=== PATIENT | female | born 1950 | race Caucasian/White ===

== ENCOUNTER 2020-03-10 14:10 | Outpatient (CLI) | payer MEDICARE, OTHER, SELFPAY ==
--- NOTE | 2020-03-10 14:19 | MM_ITS ---
WS: [id number] Bilateral screening digital mammogram, 03/10/2020 Clinical Data: SCREEN Comparison: 11/01/2018, 10/05/2017, 09/05/2016, 06/16/2015, 05/25/2010, 05/04/2009. Findings: The breast parenchymal pattern shows fibroglandular tissue No spiculated masses or clustered calcific ations are seen. There are no secondary signs of carcinoma. MM/[place] [id number] Impression: 1. Negative bilateral mammogram unchanged. 2. Recommend annual screening mammograms. BIRADS: 1-Negative FOLLOW UP: 1 Year Follow-up The CAD brick paving checker was used.
== END 2020-03-10 14:11 | disposition home or self-care (01) ==
LOC: RADSHAW 14:15
PROVIDERS: PCP Family Medicine; Visit Provider Family Medicine
DX: Z12.31 Encounter for screening mammogram for malignant neoplasm of breast (principal)
CPT/HCPCS: 77067

== ENCOUNTER 2021-01-26 14:31 | Outpatient (CLI) | payer MEDICARE, OTHER, SELFPAY ==
--- NOTE | 2021-01-26 14:39 | XR_ITS ---
WS: [id number] LUMBAR SPINE: 3 VIEWS TECHNIQUE: AP, lateral and L5-S1 spot. HISTORY: CHRONIC MIDLINE LOW BACK PAIN WITH BILATERAL SCIATICA COMPARISON: None available. Very mild RIGHT curvature lumbar spine. Disc spaces are narrowed with endplate osteophytes. No fractu res. Mild facet joint arthritis at L5-S1. Bones are diffusely osteopenic. SI joints are symmetric bilaterally. No soft tissue abnormalities. Moderate atherosclerosis aorta. XR/XR lumbar spine 2-3V* [id number] IMPRESSION: 1. Moderate spondylitic changes. 2. No acute compression fractures are evident. 3. Moderate atherosclerosis aorta.
== END 2021-01-26 14:32 | disposition home or self-care (01) ==
PROVIDERS: PCP Family Medicine; Visit Provider Family Medicine
DX: M54.5 Low back pain (principal); M54.32 Sciatica, left side; M54.31 Sciatica, right side; I70.0 Atherosclerosis of aorta
CPT/HCPCS: 72100

== ENCOUNTER → 2021-03-05 11:43 | Outpatient (BNVA) | payer MEDICARE, OTHER, SELFPAY | PROVIDERS: PCP Family Medicine; Visit Provider Podiatrist Foot & Ankle Surgery | DX: M79.672 Pain in left foot (principal) | CPT/HCPCS: 73630 ==

== ENCOUNTER 2021-03-05 12:36 | Outpatient (CLI) | payer MEDICARE, OTHER, SELFPAY | END 2021-03-05 12:37 | disposition home or self-care (01) | LOC: SPT 12:38 | PROVIDERS: PCP Family Medicine; Visit Provider Podiatrist Foot & Ankle Surgery | DX: Z46.89 Encounter for fitting and adjustment of other specified devices (principal); M76.829 Posterior tibial tendinitis, unspecified leg | CPT/HCPCS: 97760; L4361 ==

== ENCOUNTER 2021-03-10 12:43 | Outpatient (CLI) | payer MEDICARE, OTHER, SELFPAY ==
--- NOTE | 2021-03-10 13:00 | MR_ITS ---
WS: [id number] MRI LEFT ANKLE NONCONTRAST TECHNIQUE: Sagittal proton density, sagittal STIR, axial proton density, axial T1, axial T2 fat sat, coronal proton density, coronal proton density fat sat, coronal T2 fat sat. CLINICAL INFORMATION: Ankle pain COMPARISON: None. FINDINGS: Intrasubstance signal abnormality involving the distal Achilles proximal to the insertion consistent with tendinosis and mucoid degeneration. Normal Achilles insertion. Normal ankle mortise. Normal late ral malleolus. Normal medial malleolus. Deltoid ligament is intact. ATF appears intact. Achilles enth esophyte. Plantar calcaneal spurring. Normal plantar aponeurosis. Normal talus and calcaneus. Small amount of subchondral cystic change inv olving the medial talar dome. No evidence of avascular necrosis. Normal talocalcaneal articulation. N ormal cuboid. Normal talus. Visualized tarsal bones are normal. Chronic split tear peroneus brevis. Peroneal tendon sheath is normal. Peroneal longus and brevis othe rwise normal. Tenosynovitis along the tibialis posterior with tendinopathy or partial intrasubstance tear. Small an kle effusion with a few ganglion cysts. Tenosynovitis along the tibialis anterior. Extensor compartme nt tendons are otherwise normal. MR/MR ankle LT wo con* [id number] IMPRESSION: 1. Normal ankle mortise. No acute fractures. 2. Tendinosis and mucoid degeneration involving the distal Achilles which appe ars intact. 3. Tenosynovitis with tendinopathy or partial tear involving the tibialis post erior. 4. Tenosynovitis along the tibialis anterior. 5. Small ankle joint effusion with a few ganglion cysts at the anterolateral g utter. 6. ATF is intact. 7. Chronic split tear peroneus brevis.
== END 2021-03-10 12:44 | disposition home or self-care (01) ==
LOC: RADSHAW 12:47
PROVIDERS: PCP Family Medicine; Visit Provider Podiatrist Foot & Ankle Surgery
DX: M25.572 Pain in left ankle and joints of left foot (principal); M25.472 Effusion, left ankle; M67.472 Ganglion, left ankle and foot; M65.872 Other synovitis and tenosynovitis, left ankle and foot
CPT/HCPCS: 73721

== ENCOUNTER 2021-04-26 08:25 | Outpatient (CLI) | payer MEDICARE, OTHER, SELFPAY ==
--- NOTE | 2021-04-26 08:30 | XR_ITS ---
WS: [id number] KUB, AP view, 04/26/2021 Clinical Data: kidney stones Comparison: KUB, 01/11/2018. Findings: No abnormal intraabdominal masses or calcifications are seen. There is no dilatated small bowel or ev idence of obstruction. There is a large amount of fecal material throughout the colon. XR/XR KUB [id number] Impression: Negative KUB.
== END 2021-04-26 08:26 | disposition home or self-care (01) ==
PROVIDERS: PCP Family Medicine; Visit Provider Urology
DX: N20.0 Calculus of kidney (principal)
CPT/HCPCS: 74018; 81003; 87077; 87086; 87184

== ENCOUNTER 2021-04-28 16:13 | Outpatient (CLI) | payer MEDICARE, OTHER, SELFPAY | END 2021-04-28 16:14 | disposition home or self-care (01) | LOC: SPT 16:14 | PROVIDERS: PCP Family Medicine; Visit Provider Podiatrist Foot & Ankle Surgery | DX: Z46.89 Encounter for fitting and adjustment of other specified devices (principal); M76.829 Posterior tibial tendinitis, unspecified leg | CPT/HCPCS: 97760; L1902 ==

== ENCOUNTER 2021-05-20 15:50 | Outpatient (CLI) | payer MEDICARE, OTHER, SELFPAY | END 2021-05-20 15:51 | disposition home or self-care (01) | LOC: SPT 15:51 | PROVIDERS: PCP Family Medicine; Visit Provider Podiatrist Foot & Ankle Surgery | DX: Z46.89 Encounter for fitting and adjustment of other specified devices (principal); M76.829 Posterior tibial tendinitis, unspecified leg; S86.112D Strain of other muscle(s) and tendon(s) of posterior muscle group at lower leg level, left leg, subsequent encounter; X58.XXXD Exposure to other specified factors, subsequent encounter | CPT/HCPCS: 97760; L3030 ==

== ENCOUNTER → 2021-06-15 13:59 | Outpatient (BNVA) | payer MEDICARE, OTHER, SELFPAY | PROVIDERS: PCP Family Medicine; Visit Provider Urology | DX: N39.0 Urinary tract infection, site not specified (principal); N39.41 Urge incontinence; N20.0 Calculus of kidney | CPT/HCPCS: 81003 ==

== ENCOUNTER 2021-07-08 15:08 | Outpatient (CLI) | payer MEDICARE, OTHER, SELFPAY ==
--- NOTE | 2021-07-08 15:16 | MM_ITS ---
WS: [id number] SCREENING DIGITAL MAMMOGRAM WITH CAD HISTORY: SCREENING COMPARISON: 03/10/2020, 11/01/2018, 10/05/2017 and 09/05/2016 Bilateral CC and MLO views submitted. Computer aided detection analyzed. Breast composition: There are scattered areas of fibroglandular density. Focal asymmetry with adjacen t calcifications in the central LEFT breast at a middle depth needs further evaluation. Linear area c onfiguration extending over a length of 10 mm. There is an additional cluster of calcification in the superior LEFT breast which has been present on prior studies. Recommend additional spot compression views for better evaluation. MM/[place] [id number] IMPRESSION: BI-RADS: 0-Incomplete: Need additional imaging evaluation FOLLOW UP: Need Additional Imaging LEFT breast: Magnification views (CC and MLO). True ML. Ultrasound to follow if abnormality persists.
== END 2021-07-08 15:09 | disposition home or self-care (01) ==
LOC: RADSHAW 15:14
PROVIDERS: PCP Family Medicine; Visit Provider Family Medicine
DX: Z12.31 Encounter for screening mammogram for malignant neoplasm of breast (principal)
CPT/HCPCS: 77067

== ENCOUNTER 2021-09-03 12:59 | Outpatient (CLI) | payer MEDICARE, OTHER, SELFPAY ==
--- NOTE | 2021-09-03 13:32 | MM_ITS ---
WS: [id number] ADDITIONAL VIEWS LEFT MAMMOGRAM HISTORY: LEFT breast calcifications seen on recent screening mammogram. COMPARISON: 07/08/2021, 03/10/2020, 11/01/2018 Magnification views LEFT breast in CC, MLO projections and true ML submitted. On the magnification views there are only a couple calcifications which are not clustered in the ante rior breast. No residual soft tissue nodular mass associated with these calcifications. There are add itional benign calcifications which are stable. There is no suspicious grouping of calcifications. MM/[place] [id number] IMPRESSION: BI-RADS: 2-Benign FOLLOW UP: 1 Year Follow-up
== END 2021-09-03 13:00 | disposition home or self-care (01) ==
LOC: RADSHAW 13:02
PROVIDERS: PCP Family Medicine; Visit Provider Family Medicine
DX: R92.1 Mammographic calcification found on diagnostic imaging of breast (principal)
CPT/HCPCS: 77065

== ENCOUNTER → 2021-09-08 15:14 | Outpatient (BNVA) | payer MEDICARE, OTHER, SELFPAY | PROVIDERS: PCP Family Medicine; Visit Provider Nurse Practitioner Family | DX: N39.0 Urinary tract infection, site not specified (principal) | CPT/HCPCS: 81003 ==

== ENCOUNTER → 2022-10-03 18:20 | Outpatient (BNVA) | payer MEDICARE, OTHER, SELFPAY | PROVIDERS: PCP Family Medicine; Visit Provider Registered Nurse Neonatal Intensive Care | DX: M25.511 Pain in right shoulder (principal) | CPT/HCPCS: 73030 ==

== ENCOUNTER 2022-10-18 12:17 | Outpatient (CLI) | payer MEDICARE, OTHER, SELFPAY ==
--- NOTE | 2022-10-18 12:24 | XR_ITS ---
WS: [id number] Exam: XR cervical spine 3V* [id number] Date/Time of Exam: 10/18/2022 12:28 PM Reason For Exam: CERVICAL PAIN No acute fracture or dislocation. Mild spondylosis of C4-C5. Mild facet DJD at all levels. There is s traightening of the C-spine. Very slight degenerative retrolisthesis of C4 on C5 with about 2 mm post erior movement of C4. Normal paraspinal soft tissues. The odontoid is intact. XR/XR cervical spine 3V* [id number] IMPRESSION: 1. No fracture or malalignment. 2. Mild degenerative changes as detailed above.
== END 2022-10-18 12:18 | disposition home or self-care (01) ==
LOC: RAD 12:19
PROVIDERS: PCP Family Medicine; Visit Provider Registered Nurse
DX: M47.812 Spondylosis without myelopathy or radiculopathy, cervical region (principal)
CPT/HCPCS: 72040

== ENCOUNTER 2022-11-04 10:44 | Outpatient (CLI) | payer MEDICARE, OTHER, SELFPAY ==
--- NOTE | 2022-11-04 11:00 | MR_ITS ---
WS: [id number] MRI RIGHT SHOULDER HISTORY: PAIN IN JOINT OF R SHOULDER/DECREASED ROM OF R SHOULDER COMPARISON: RIGHT shoulder radiograph 10/03/2022 TECHNIQUE: Multiplanar sequences of the shoulder joint are submitted. Severe AC joint arthritis. Bone and soft tissue hypertrophy with fluid along the AC ligament. Moderat e subacromial and subdeltoid joint effusion. There is fluid distending the axillary pouch. Subacromia l impingement contacting the superior humeral head. No os acromion. Biceps tendon is not identified in the bicipital groove. Tendon is either dislocated or torn. Advanced degenerative changes involving the humeral head. Loss of cartilage with high riding humeral head. Narrowing of the glenohumeral joint. Severe narrowing of the coracohumeral interval. Torn retracted supraspinatus tendon. Tendon is retracted to the superior humeral head with fraying of the distal surfaces. Severe atrophy of the supraspinatus. Moderate atrophy of the infraspinatus and subscapularis tendons. Subscapularis tendon is torn and retracted proximal to the coracohumeral inter nanda. Infraspinatus tendon is not identified beyond the superior humeral head. Small caliber menisci. MR/MR shoulder RT wo con* [id number] IMPRESSION: 1. Severe degenerative changes at the RIGHT shoulder. 2. Torn retracted supraspinatus, infraspinatus and subscapularis tendons. 3. Severe AC joint arthritis with AC ligament sprain. 4. Severe narrowing of the coracohumeral ligament and subacromial encroachment . 5. Nonvisualization of the biceps tendon in the bicipital groove. Tendon is ei ther torn and retracted or dislocated.
== END 2022-11-04 10:45 | disposition home or self-care (01) ==
PROVIDERS: PCP Family Medicine; Visit Provider Registered Nurse
DX: M25.611 Stiffness of right shoulder, not elsewhere classified (principal); M19.011 Primary osteoarthritis, right shoulder; S43.51XA Sprain of right acromioclavicular joint, initial encounter; X58.XXXA Exposure to other specified factors, initial encounter
CPT/HCPCS: 73221

== ENCOUNTER 2023-03-13 10:59 | Outpatient (RCR) | payer MEDICARE, OTHER, SELFPAY | END 2023-03-24 23:59 | disposition home or self-care (01) | LOC: SPT 10:59 | PROVIDERS: PCP Family Medicine; Visit Provider Physician Assistant | DX: Z47.89 Encounter for other orthopedic aftercare (principal) | CPT/HCPCS: 97110; 97161 ==

== ENCOUNTER 2023-03-25 06:00 | Outpatient (RCR) | payer MEDICARE, OTHER, SELFPAY | END 2023-04-24 23:59 | disposition home or self-care (01) | LOC: SPT 06:00 | PROVIDERS: PCP Family Medicine; Visit Provider Physician Assistant | DX: Z47.89 Encounter for other orthopedic aftercare (principal) | CPT/HCPCS: 97110; 97140 ==

== ENCOUNTER 2023-04-25 06:00 | Outpatient (RCR) | payer MEDICARE, OTHER, SELFPAY | END 2023-05-25 23:59 | disposition home or self-care (01) | LOC: SPT 06:00 | PROVIDERS: PCP Family Medicine; Visit Provider Physician Assistant | DX: Z47.1 Aftercare following joint replacement surgery (principal); Z96.611 Presence of right artificial shoulder joint | CPT/HCPCS: 97110 ==

== ENCOUNTER 2024-01-24 11:19 | Outpatient (CLI) | payer MEDICARE, OTHER, SELFPAY ==
--- NOTE | 2024-01-24 11:29 | MM_ITS ---
WS: [id number] BILATERAL 3D TOMOSYNTHESIS DIGITAL SCREENING MAMMOGRAPHY WITH CAD CLINICAL INFORMATION: SCREENING HISTORY: Screening mammogram. No current complaints. COMPARISON: 2020 TECHNIQUE: Bilateral CC and MLO views. FINDINGS: Scattered fibroglandular densities bilaterally. No suspicious focal mass, asymmetry, calcifications, or architectural distortion. No evidence of malignancy. Vascular calcification. Incidental punctate a nd lucent centered calcifications. MM/[place] [id number] IMPRESSION: BI-RADS: 2-Benign FOLLOW UP: 1 Year Follow-up Recommend return to annual screening mammography.
== END 2024-01-24 11:20 | disposition home or self-care (01) ==
LOC: RAD 11:23
PROVIDERS: PCP Family Medicine; Visit Provider Family Medicine
DX: Z12.31 Encounter for screening mammogram for malignant neoplasm of breast (principal); R92.323 Mammographic fibroglandular density, bilateral breasts
CPT/HCPCS: 77063; 77067

== ENCOUNTER 2024-02-14 12:09 | Outpatient (CLI) | payer MEDICARE, OTHER, SELFPAY ==
--- NOTE | 2024-02-14 12:21 | XRR_ITS ---
PROCEDURE INFORMATION: Exam: XR Bilateral Hips Exam date and time: 02/14/2024 12:47 PM Age: 73 years old Clinical indication: Hip pain; Bilateral TECHNIQUE: Imaging protocol: Radiologic exam of the bilateral hips. Views: 2 views of hips with pelvis when performed. COMPARISON: CT kidney stone [id number] 12/05/2017 12:54 PM FINDINGS: Bones/joints: Lower lumbar degenerative changes. Enthesopathic changes both greater trochanters. No fracture. Soft tissues: Unremarkable. XR/XR hip BI 3-4V wo/[place] pel [id number] IMPRESSION: No acute findings.
== END 2024-02-14 12:10 | disposition home or self-care (01) ==
LOC: RAD 12:12
PROVIDERS: PCP Family Medicine; Visit Provider Family Medicine
DX: M47.896 Other spondylosis, lumbar region (principal); M77.9 Enthesopathy, unspecified
CPT/HCPCS: 73522

== ENCOUNTER 2024-03-12 13:58 | Outpatient (CLI) | payer MEDICARE, OTHER, SELFPAY ==
--- NOTE | 2024-03-12 14:10 | XRR_ITS ---
PROCEDURE INFORMATION: Exam: XR Right Knee Exam date and time: 03/12/2024 2:15 PM Age: 73 years old Clinical indication: Pain; Left; Prior surgery; Surgery date: 6+ months; Surgery type: Right meniscus 2017; Patient HX: Knee locked up while walking up steps. ; Additional info: Injury of R knee TECHNIQUE: Imaging protocol: Radiologic exam of the right knee. Views: 3 views. COMPARISON: CR XR knee RT 3V* [id number] 05/08/2018 4:46 PM FINDINGS: Bones/joints: Osseous structures are intact. Negative for fracture. Moderate tricompartmental DJD. Soft tissues: Normal. XR/XR knee RT 3V* [id number] IMPRESSION: No acute findings. Moderate tricompartmental DJD.
== END 2024-03-12 13:59 | disposition home or self-care (01) ==
PROVIDERS: PCP Family Medicine; Visit Provider Family Medicine
DX: S89.91XD Unspecified injury of right lower leg, subsequent encounter (principal); Z98.890 Other specified postprocedural states; M17.11 Unilateral primary osteoarthritis, right knee
CPT/HCPCS: 73562

== ENCOUNTER 2024-04-04 08:11 | Observation (INO) | payer MEDICARE, OTHER, MEDICAID, SELFPAY ==
[2024-04-04] VITALS (8 sets, daily range): BP systolic 104–152; BP diastolic 52–97; PULSE 59–89; RESP 14–20; TEMP 36.7–36.9; O2SAT 92–98; BMI 33.6
--- NOTE | 2024-04-04 08:26 | XRR_ITS ---
PROCEDURE INFORMATION: Exam: XR Chest Exam date and time: 04/04/2024 8:43 AM Age: 73 years old Clinical indication: Cough and dyspnea; Patient HX: Back pain, burping; Additional info: Dyspnea/cough TECHNIQUE: Imaging protocol: Radiologic exam of the chest. Views: 1 view. COMPARISON: MR shoulder RT wo con* [id number] 11/04/2022 11:37 AM FINDINGS: Lungs: Unremarkable. No consolidation. Pleural spaces: Unremarkable. No pleural effusion. No pneumothorax. Heart/Mediastinum: Unremarkable. No cardiomegaly. Bones/joints: The patient is post right shoulder arthroplasty. Degenerative changes are noted in the bones. XR/XR chest 1V portable [id number] IMPRESSION: No acute cardiopulmonary disease.
--- NOTE | 2024-04-04 08:27 | ED_ITS ---
HPI - Chest Pain 2 General: Chief Complaint: Chest Pain Stated Complaint: chest pain, back pain, burping Time Seen by Provider: 04/04/24 08:19 Source: patient Mode of arrival: ambulatory History of Present Illness: 73-year-old female presents to the emerg ency room with complaints of chest comfort that began last night after she was eating. She reports lower retrosternal epigastric discomfort with a lot of eructations woke her up earlier this morning. She had some relief with drinking milk. No history of coronary disease. no chest discomfort at this time I seen the patient.. No shortness of breath or diaphoresis at this time no chest pain at this time. Initial EKG shows T wave inversion in 2 3 as well as V3 through 6. MD complaint: chest pain Onset (ago): hour(s) Timing of current episode: episodic Onset: after eating Pain location: substernal Associated symptoms: Deny abdominal pain, dyspnea or fever(s) Review of Systems 2 Const: Denies: fever(s) or chills Card: Denies: chest pain Resp: Denies: dyspnea GI: Denies: abdominal pain : Denies: dysuria, urinary frequency or urinary urgency Musc: Denies: neck pain or back pain Skin/Breast: Denies: rash PFSH ED 2 PFSH: Medical History Recurrent UTI Urgency incontinence Left renal stone History of torn meniscus of right knee History of kidney stones Surgical History History of hysterectomy History of tonsillectomy and adenoidectomy Family History Father CAD (coronary artery disease) Cancer Grandfather CAD (coronary artery disease) Hypertension Grandmother CAD (coronary artery disease) Hypertension Mother Hypertension Stroke Social History Second hand smoke exposure: No Alcohol intake: never Substance/Drug Use: never Marital status: Current occupational status: retired Physical Exam 2 Const: COMMON NORMALS: no acute distress GENERAL APPEARANCE: cooperative and comfortable ORIENTATION/CONSCIOUSNESS: Yes awake, Yes oriented to person, Yes oriented to place and Yes oriented to time HENMT: COMMON NORMALS: normocephalic, atraumatic and hearing grossly normal bilaterally HEAD & SCALP: normocephalic and atraumatic Resp: COMMON NORMALS: normal respiratory effort, No retractions, No use of accessory muscles and clear to auscultation bilaterally AUSCULTATION: clear to auscultation bilaterally Cardio: COMMON NORMALS: regular rate, regular rhythm and No murmurs present (Cardio) RATE: regular rate RHYTHM: regular rhythm GI: COMMON NORMALS: Soft to palpation and No hepatosplenomegaly present A USCULTATION: Yes normoactive bowel sounds PALPATION: Yes Soft to palpation, No Tenderness to palpation present (GI), No Guarding due to palpation present (GI) and Yes No hepatosplenomegaly present Extremity: COMMON NORMALS: normal to inspection, capillary refill normal, no clubbing, cyanosis or edema, no calf tenderness and no pedal edema Neuro: SENSORIUM/ORIENTATION: Yes oriented to person, Yes oriented to place and Yes oriented to time Skin: COMMON NORMALS: no rashes or lesions noted GENERAL SKIN EXAM: no rashes or lesions noted Course 2 Vital Signs: Vital signs: Vital Signs Temperature 98.1 F 04/04/24 08:15 Pulse Rate 59 L 04/04/24 11:33 Respiratory Rate 18 04/04/24 11:33 Blood Pressure 110/76 04/04/24 09:43 Pulse Oximetry 95 04/04/24 11:33 Oxygen Delivery Me thod Nasal Cannula 04/04/24 11:33 Oxygen Flow Rate 2 04/04/24 11:33 MDM - Chest Pain Medical Decision Making Initial EKG showed T wave inversion in 3 and aVF as well as the lateral leads V3 through 6. She had told the nurse she had chest pain for return but when I had seen her she said she only had the GI symptoms. She reported that they got better a little bit after she drank the milk overnight. Her next EKG showed similar findings. She had some evidence of LVH. Subsequent EKGs at 1011 and 1111 were similar. Troponins both of 1 hour and 2-hour came back in the same timeframe and went from 300-476. Reevaluated patient at that point she is stating she still has GI symptoms stomach upset nausea but denies any chest pain at this time. Reviewed EKGs with Dr. Horn who is on-call and also asked him to see the patient. He concurred that while she does not meet criteria for STEMI her findings are consistent for an RCA lesion and with her ongoing anginal equivalents he is planning to take her directly to the [facility]. She was given Plavix aspirin and heparin. Discussed with Dr. Lomax as well. Patient will go directly from [facility] and be admitted. Medical Records I reviewed the patient's medical records. Lab Data I reviewed the patient's lab results. 04/04/24 08:32 04/04/24 08:32 Radiology Impressions Chest X-Ray 04/04/24 08:26 IMPRESSION: No acute cardiopulmonary disease. Laboratory Results WBC 10.50 10^3/uL (3.29-11.43) 04/04/24 08:32 RBC 4.70 10^6/uL (3.85-5.65) 04/04/24 08:32 Hgb 14.90 g/dL (11.27-16.99) 04/04/24 08:32 Hct 44.5 % (36-47) 04/04/24 08:32 MCV 94.7 fl (85-98) 04/04/24 08:32 MCH 31.7 pg (27-33) 04/04/24 08:32 MCHC 33.5 g/dL (30-55) 04/04/24 08:32 RDW 12.6 % (12.1-15.1) 04/04/24 08:32 Plt Count 315 10^3/cmm (157-399) 04/04/24 08:32 MPV 11.0 fL (7.4-10.4) H 04/04/24 08:32 Neut % (Auto) 81.6 % 04/04/24 08:32 Lymph % (Auto) 14.2 % 04/04/24 08:32 [place] % (Auto) 2.9 % 04/04/24 08:32 Eos % (Auto) 0.6 % 04/04/24 08:32 Baso % (Auto) 0.5 % 04/04/24 08:32 Neut # (Auto) 8.58 10^3/uL (1.8-7.7) H 04/04/24 08:32 Lymph # (Auto) 1.5 10^3/uL (0.8-4.8) 04/04/24 08:32 [place] # (Auto) 0.3 10^3/uL (0.2-0.9) 04/04/24 08:32 Eos # (Auto) 0.1 10^3/uL (0.0-0.8) 04/04/24 08:32 Baso # (Auto) 0.1 10^3/uL (0.0-0.1) 04/04/24 08:32 Nucleated RBC % (auto) 0 % 04/04/24 08:32 Nucleated RBCs # 0.0 /100WBC 04/04/24 08:32 Sodium 132 mmol/L (136-145) L 04/04/24 08:32 Potassium 4.7 mmol/L (3.5-5.1) 04/04/24 08:32 Chloride 98 mmol/L (98-107) 04/04/24 08:32 Carbon Dioxide 21 mmol/L (22-29) L 04/04/24 08:32 Anion Gap 17.7 (5-19) 04/04/24 08:32 BUN 31 mg/dL (8-23) H 04/04/24 08:32 Creatinine 1.0 mg/dL (0.5-0.9) H 04/04/24 08:32 GFR Calculation Not Reportable 04/04/24 08:32 Glucose 310 mg/dL (65-115) H 04/04/24 08:32 Calculated Osmolality 292 mOsm/kg (285-295) 04/04/24 08:32 Calcium 9.6 mg/dL (8.5-10.5) 04/04/24 08:32 Total Bilirubin 0.4 mg/dL (0.15-1.2) 04/04/24 08:32 AST 87 U/L (0-32) H 04/04/24 08:32 ALT 51 U/L (0-33) H 04/04/24 08:32 Alkaline Phosphatase 99 U/L (35-105) 04/04/24 08:32 Troponin T Baseline 305 ng/L (0-10) H* 04/04/24 09:32 Troponin T 120 Minute 476.8 ng/L (0-10) H 04/04/24 10:11 Delta Troponin T 171.8 ABS# (0-10) H* 04/04/24 10:11 Total Protein 7.6 g/dL (6.6-8.7) 04/04/24 08:32 Albumin 3.8 g/dL (3.5-5.2) 04/04/24 08:32 Globulin 3.8 g/dL (1.3-4.6) 04/04/24 08:32 All radiology interpretation(s) finalized by discharge Discharge Plan Discharge Condition: Stable Prescriptions: No Action (DME) PTT Supinator to the left See Rx Instructions .Route .MEDSUPPLY Qty: 1 0RF Rx Instructions: As directed bupropion HCl 150 mg tablet extended release 24 hr 150 mg PO BID omeprazole 20 mg tablet,delayed release (DR/EC) 20 mg PO DAILY allopurinol 300 mg tablet 300 mg PO DAILY Amitiza 24 mcg capsule 24 mcg PO DAILY valsartan 160 mg tablet 160 mg PO DAILY ropinirole 1 mg tablet 1 mg PO DAILY alprazolam 0.25 mg tablet 0.25 mg PO BID PRN (Reason: Anxiety) metoprolol tartrate 50 mg tablet 50 mg PO DAILY biotin 2,500 mcg capsule 5,000 mcg PO DAILY multivitamin [Multiple Vitamins] Tablet 1 tab PO DAILY cefuroxime axetil 500 mg tablet 500 mg PO BID Qty: 60 2RF levothyroxine 50 mcg tablet 50 mcg PO QAM hydrocodone-acetaminophen 7.5-325 mg tablet 1 tab PO Q6H PRN (Reason: Pain) montelukast 10 mg tablet 10 mg PO BEDTIME Ozempic 0.25 mg or 0.5 mg (2 mg/3 mL) pen injector 0.25 mg SUBCUT Q7D Referrals: Jocelyn Lopez DO [Primary Care Provider] - Coding Level of Care Code ED [employer] Worker for [facility]
[2024-04-04 08:44] LABS: Basophils # 0.1 10^3/uL (0.0-0.1); Basophils % 0.5 %; Eosinophils # 0.1 10^3/uL (0.0-0.8); Eosinophils % 0.6 %; Hematocrit 44.5 % (36-47); Lymphocytes # 1.5 10^3/uL (0.8-4.8); Lymphocytes % 14.2 %; Mean Corpuscular HGB Conc 33.5 g/dL (30-55); Mean Corpuscular Hemoglobin 31.7 pg (27-33); Mean Corpuscular Volume 94.7 fl (85-98); Monocytes # 0.3 10^3/uL (0.2-0.9); Monocytes % 2.9 %; Neutrophils # 8.58 10^3/uL (1.8-7.7); Neutrophils % 81.6 %; Nucleated Red Blood Cells % 0 %; Platelet Count 315 10^3/cmm (157-399); Red Cell Distribution Width 12.6 % (12.1-15.1)
[2024-04-04] MEDS: lidocaine 2% viscous 15 ML, aluminum-mag hydrox-simethicon 30 ML, sucralfate oral liq 1 GM PO (08:53)
[2024-04-04 08:54] LABS: Alanine Aminotransferase 51 U/L (0-33); Albumin Level 3.8 g/dL (3.5-5.2); Alkaline Phosphatase 99 U/L (35-105); Anion Gap 17.7 (5-19); Aspartate Amino Transferase 87 U/L (0-32); Blood Urea Nitrogen 31 mg/dL (8-23); Calcium 9.6 mg/dL (8.5-10.5); Carbon Dioxide 21 mmol/L (22-29); Chloride 98 mmol/L (98-107); Globulin 3.8 g/dL (1.3-4.6); Glucose 310 mg/dL (65-115); Osmolality Calculated 292 mOsm/kg (285-295); Potassium 4.7 mmol/L (3.5-5.1); Sodium 132 mmol/L (136-145); Total Bilirubin 0.4 mg/dL (0.15-1.2); Total Protein 7.6 g/dL (6.6-8.7)
[2024-04-04 08:55] LABS: Creatinine Clr Calc Pharmacy 54.0879
--- NOTE | 2024-04-04 09:44 | PC.NURSE ---
PATIENT STATES PAIN BETTER, BUT BURPING HAS RESUMED.
--- NOTE | 2024-04-04 09:59 | ECG_ITS ---
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 Measurements Intervals [place] Rate: 88 P: 55 FL: 148 QRS: -22 QRSD: 89 T: 16 QT: 346 QTc: 420 Interpretive Statements SINUS RHYTHM WITH SINUS ARRHYTHMIA BORDERLINE LEFT AXIS DEVIATION [QRS AXIS < -20] ST DEVIATION AND MODERATE T-WAVE ABNORMALITY, CONSIDER ANTEROLATERAL ISCHEMIA [-0.1+ mV T-WAVE IN V3-V6] No previous ECG available for comparison Electronically Signed On 04-04-2024 23:27:28 CDT by Sudhakar Craven M.D. [email or web address] [employer] [facility].[employer]/store/[id number] f
[2024-04-04 10:42] LABS: Troponin(5th) Baseline 305 ng/L (0-10)
[2024-04-04 10:43] LABS: Troponin 5 2HR 476.8 ng/L (0-10); Troponin 5 2HR Delta 171.8 ABS# (0-10)
[2024-04-04] MEDS: aspirin 81 mg Chew Tablet 324 MG PO (11:26)
[2024-04-04] MEDS: sodium chloride 0.9% 1,000 ML 999 ML IV (11:26)
[2024-04-04] MEDS: ondansetron 2 mg/ML SDV 2 mL 4 MG IVP (11:26)
[2024-04-04] MEDS: clopidogrel 300 mg Tablet PO (11:27)
--- NOTE | 2024-04-04 11:45 | P.HP_ITS ---
Providers/Chief Complaint 2 Admitting Physician: Nain Horn MD/ Cardiology Primary Care Provider: Jocelyn Lopez DO Chief Complaint: chest pain, back pain, burping History of Present Illness Stephanie Hanson is a 73 year old female with past medical history of diabetes, hypertension who presented to hospital with chest pain, back pain and indigestion. She says chest pain started last night. It comes and goes but mostly has stayed. Still having significant indigestion and nausea. EKG shows dynamic ST changes in inferior leads not meeting STEMI criteria. Initial troponin was 305 that trended up to 476 at 2 hours. Her diabetes is poorly controlled and per patient last HbA1c was 11. Review of Systems 2 Const: Denies: fever(s) or chills Card: Reports: chest pain Resp: Denies: dyspnea GI: Reports: nausea; Denies: abdominal pain : Denies: dysuria, urinary frequency or urinary urgency Musc: Denies: neck pain or back pain Skin/Breast: Denies: rash Medications/Allergies Home Medications Medication Instructions Recorded Confirmed Last Taken Type allopurinol 300 mg tablet 300 mg PO DAILY 08/27/20 04/04/24 04/04/24 History alprazolam 0.25 mg tablet 0.25 mg PO BID PRN Anxiety 08/27/20 04/04/24 Unknown History biotin 2,500 mcg capsule 5,000 mcg PO DAILY 08/27/20 04/04/24 04/03/24 History bupropion HCl 150 mg 24 hr tablet, 150 mg PO BID 08/27/20 04/04/24 04/04/24 History extended release lubiprostone 24 mcg capsule 24 mcg PO DAILY 08/27/20 04/04/24 04/04/24 History (Amitiza) metoprolol tartrate 50 mg tablet 50 mg PO DAILY 08/27/20 04/04/24 04/04/24 History multivitamin (Multiple Vitamins 1 tab PO DAILY 08/27/20 04/04/24 04/03/24 History tablet) omeprazole 20 mg tablet,delayed 20 mg PO DAILY 08/27/20 04/04/24 04/04/24 History release ropinirole 1 mg tablet 1 mg PO DAILY 08/27/20 04/04/24 04/04/24 History valsartan 160 mg tablet 160 mg PO DAILY 08/27/20 04/04/24 04/04/24 History PTT Supinator to the left #1 ea 04/28/21 04/04/24 Unknown Rx cefuroxime axetil 500 mg tablet 500 mg PO BID #60 tabs 08/25/22 04/04/24 04/04/24 Rx hydrocodone 7.5 mg-acetaminophen 1 tab PO Q6H PRN Pain 04/04/24 04/04/24 Unknown History 325 mg tablet levothyroxine 50 mcg tablet 50 mcg PO QAM 04/04/24 04/04/24 04/04/24 History montelukast 10 mg tablet 10 mg PO BEDTIME 04/04/24 04/04/24 Unknown History semaglutide 0.25 mg or 0.5 mg (2 0.25 mg SUBCUT Q7D 04/04/24 04/04/24 Unknown History mg/3 mL) subcutaneous pen injector (Ozempic) Allergies Allergy/AdvReac Type Severity Reaction Status Date / Time Penicillins Allergy Unknown Verified 10/03/22 17:48 Xumzdqt-KTT-HdT Reductase Allergy Unknown Verified 10/03/22 17:48 Inhibitor [Wkphkwe-Bkc-Kyf Reductase Inhibitor] tramadol Allergy rash Verified 10/03/22 17:48 PFSH Acute 2 PFSH: Medical History Recurrent UTI Urgency incontinence Left renal stone History of torn meniscus of right knee History of kidney stones Surgical History History of hysterectomy History of tonsillectomy and adenoidectomy Family History Father CAD (coronary artery disease) Cancer Grandfather CAD (coronary artery disease) Hypertension Grandmother CAD (coronary artery disease) Hypertension Mother Hypertension Stroke Social History Second hand smoke exposure: No Alcohol intake: never Substance/Drug Use: never Marital status: Current occupational status: retired Vitals/I&O/Wt Last Vital Signs Temp 98.1 F 04/04/24 08:15 Pulse 59 L 07/11/24 11:33 Resp 18 04/04/24 11:33 BP 110/76 04/04/24 09:43 Pulse Ox 95 04/04/24 11:33 O2 Del Method Nasal Cannula 04/04/24 11:33 O2 Flow Rate 2 04/04/24 11:33 Weight last 48 hrs Weight 196 lb Physical Exam 2 Narrative: GENERAL: Patient is alert, awake and oriented x3. [] NECK: No jugular vein distension. [] HEENT: No cyanosis. No icterus. No pallor. [] HEART: Regular S1 and S2. No murmur, rub or gallop. [] LUNGS: Clear to auscultate bilaterally. [] CENTRAL NERVOUS SYSTEM: Grossly nonfocal. [] EXTREMITIES: Lower extremities with 1+ edema bilaterally. Data 04/04/24 08:32 04/04/24 08:32 A&P Assessment and plan (1) NSTEMI (non-ST elevated myocardial infarction): (2) Hypertension: (3) Diabetes: Plan Patient has presented with high risk NSTEMI with uptrending troponins, ongoing symptoms and dynamic EKG changes. We will proceed with urgent coronary angiogram with possible PCI. Risks and benefits of the procedure were discussed in detail. Patient understands these and wants to proceed. Has been given aspirin, Plavix and heparin bolus We will obtain echocardiogram. Will consult medicine team for management of medical issues Attestations 2 Medical Necessity Statement*: Care not expected to cross 2 midnights. Patient has presented with non-ST elevation VT with ongoing symptoms. Going for urgent coronary angiogram with possible PCI. Coding Level of Care Code Acute Code for [facility] Diagnoses NSTEMI (non-ST elevated myocardial infarction) I21.4 Hypertension I10 Diabetes E11.9
[2024-04-04] MEDS: heparin 5,000 unit/mL INJ 1 mL IV (11:47)
--- NOTE | 2024-04-04 11:47 | XACV_ITS ---
Exam Room: [facility] Ht: 163 cm Wt: 89 kg BSA: 2.04 m2 Gender: Female : 1950 Any Known Allergies: Other Exam Priority: Routine Procedure(s): Procedure Description: Diagnostic procedure Procedure Description: PCI procedure Procedure Description: Drug Eluting Coronary Stent Procedure Description: PTCA Procedure Description: Miscellaneous Procedure Description: ACT Procedure Description: Coronary Angiography Diagnostic Cath Status: Urgent Diagnostic Findings * INDICATION: 73 year old female with past medical history of diabetes, hypertension who presented to hospital with chest pain, back pain and indigestion. She says chest pain started last night. It comes and goes but mostly has stayed. Still having significant indigestion and nausea. EKG shows dynamic ST changes in inferior leads not meeting STEMI criteria. Initial troponin was 305 that trended up to 476 at 2 hours. Her diabetes is poorly controlled and per patient last HbA1c was 11. . * Mid Right Coronary Artery: total thrombotic occlusion, MICHA:0 flow. Left to right collaterals are seen. * Left Main has no significant disease. * Circumflex has moderate diffuse luminal irregularities. OM1 has moderate 50 to 60% stenosis.. * Mid Left Anterior Descending: moderate 50% stenosis, MICHA: 3 flow. * Coronary angiography shows right dominance. PCI Status: Urgent PCI Indication: NSTE - ACS Interventional Findings * Procedure details: We engaged RCA with JR4 guide catheter. IV heparin was administered to maintain anticoagulation. 0.014 run-through guidewire was used to cross the total thrombotic occlusion of mid RCA was placed in distal vessel. We predilated the stenosis with 2.5 x 12 mm semicompliant balloon. This was followed by placement of 3.5 x 30 mm resolute [place] drug-eluting stent. PLV branch had total occlusion secondary to distal embolization. We dilated it with 2.0 x 12 mm and 2.5 x 12 mm semicompliant balloons. Flow was established however there was a stenosis. Given small size of the vessel very decided to treat it medically. At this time final angiogram was performed that showed excellent stent expansion,. Guide wire and guide catheter were removed. Patient left the pathology laboratory technologist in a stable condition. . * Right Posterior AV: 100% stenosis treated with a AB MINI TREK 2.00X12 RX BALLOON, and AB TREK 2.50X12 RX BALLOON. 90% residual stenosis. * Mid Right Coronary Artery: 100% stenosis treated with a AB TREK 2.50X12 RX BALLOON, and MDT R VAUGHN 3.5X30 LAKESHA. 0% residual stenosis, MICHA: 3 flow. Conclusions 1. Total thrombotic occlusion of mid RCA stenosis s/p successful revascularization with 1 stent. 2. Moderate mid LAD and OM 1 stenosis. If has symptoms as outpatient, can consider outpatient stress test. 3. Mid Right Coronary Artery was treated with a Balloon, and Drug Eluting Stent. 4. Right Posterior AV was treated with a Balloon, and Balloon. Recommendations * Dual antiplatelet therapy with aspirin and plavix. * Outpatient cardiology follow up in 2 weeks. * High intensity statin therapy. Interventional RX Recommendation: PCI w/o planned CABG Diagnostic RX Recommendation: PCI w/o planned CABG Anticoagulation: Heparin Pressures Phase:Rest AO : 99 / 71 ( 85 ) @ 1:26:00 PM 78 / 54 ( 66 ) @ 1:35:00 PM 131 / 73 ( 93 ) @ 1:42:00 PM 124 / 65 ( 91 ) @ 1:47:00 PM Clinical Evaluation EBL: 5mL-10mL Procedural Details Procedure Consent Obtained. Pre-Procedure Time Out. Identified patient by full name and date of as verbalized by the patient/guarantor. Does the consent match the physician's order: Yes. Accurate & Complete Informed Consent: Yes. Inpatient/Outpatient History & Physical on Chart: Yes. If H&P is completed, is and addenduem needed: No; If yes, is the addendum complete: N/A. Relevant Radiology Images available: Yes. Visualize and Verify Site with Patient/Guarantor: N/A. Pre-op teaching completed and patient verbalized understanding. The risks, benefits, and alternatives of sedation and/or procedure were discussed by physician. The patient agrees to continue. Procedure started. Current Diagnosis : NSTEMI. [facility] Clinical Fraility Score: 3: Managing Well. Client Service Associate Indications: ACS > 24 hours. Chest Pain Symptom Assessment: Atypical Angina. Correct patient, site and procedure confirmed by cath team. Current diagnosis: NSTEMI. PERRLA. 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 Lungs clear x 5 lobes. IV Site on Arrival: 18 gauge in the left anticubital. IV Fluids: 0.9% NaCl at KVO. 0 mL infused prior to pathology laboratory technologist. Oxygen started at 2liters/min via nasal canula. right groin was prepped with chloroprep then draped in the usual sterile fashion. right radial was prepped with chloroprep then draped in the usual sterile fashion. Physician arrived. Baseline sample Acquired. HR: 70 BPM. Physician scrubbed in. Immediate Pre-Procedure Time Out. Correct Patient: Yes; Correct Procedure: Yes; Correct Site: Yes; Correct Patient Position: Yes; Correct Supplies: Yes; Dried Flammable Prep: Yes; Blood Products Available: N/A;. Lidocaine 1% infiltrated to the right radial. Arterial access obtained. A 5 central african TIG catheter in over wire. Contrast hand injected through the catheter. Glidewire inserted through the catheter. Wire out. Contrast hand injected through the catheter. Exchange wire inserted. Catheter removed over the exchange wire. A TR Band was successful obtaining hemostatsis at the Right Radial artery insertion site. Lidocaine 1% infiltrated to the right groin. Ultrasound being used to obtain access. Arterial access obtained with micropuncture set. A 5 central african JL4 catheter in over wire. Multiple views taken of left coronary artery. Catheter removed over the standard wire. 6 central african JR 4 guide catheter was inserted over the wire. Runthrough guidewire was advanced through the guide catheter to lesion in the mid RCA. Inflation number : 1 A AB TREK 2.50X12 RX BALLOON was prepped and advanced across the Mid RCA , then inflated to 12 MARY ANN for 0:12 seconds. Inflation number: 2 The AB TREK 2.50X12 RX BALLOON was reinflated across the Mid RCA, to 14 MARY ANN for 0:09 seconds. Balloon out. Results checked. Inflation Number : 3 A MDT R VAUGHN 3.5X30 LAKESHA -Lot Number# _[id number] EXP: 12/25/2023 was prepped and advanced across the Mid RCA. The stent was deployed at 12 MARY ANN for 0:15 seconds. Stent balloon out over wire. Results checked. 2.5x12mm balloon inserted and advanced to the distal RCA. Balloon out. Inflation number : 1 A AB MINI TREK 2.00X12 RX BALLOON was prepped and advanced across the R PAV , then inflated to 8 MARY ANN for 0:07 seconds. Inflation number: 2 The AB MINI TREK 2.00X12 RX BALLOON was reinflated across the R PAV, to 12 MARY ANN for 0:09 seconds. Inflation number: 3 The AB MINI TREK 2.00X12 RX BALLOON was reinflated across the R PAV, to 4 MARY ANN for 0:06 seconds. Balloon out. Inflation number: 4 The AB TREK 2.50X12 RX BALLOON was reinflated across the R PAV, to 8 MARY ANN for 0:06 seconds. Inflation number: 5 The AB TREK 2.50X12 RX BALLOON was reinflated across the R PAV, to 6 MARY ANN for 0:13 seconds. Balloon out. Results checked. Wire out. ACT drawn. Results out of range high seconds. Therapeutic limits - pre-heparin administration 90-150 seconds and monitoring heparin during a vascular procedure >250 seconds. Results checked. Guide catheter out. A Right femoral angiogram was performed to determine safe placement of closure device. ACT drawn. Results 226 seconds. Therapeutic limits - pre-heparin administration 90-150 seconds and monitoring heparin during a vascular procedure >250 seconds. A Suture was successful obtaining hemostatsis at the Right Femoral artery insertion site. Sheath(s) sutured into position with 2-0 silk and sterile 4x4's and Op-site applied over the site. No oozing or signs and symptoms of hematoma noted. Arterial sheath flushed and connected to tranducer and pressure bag with heparinized saline. Post Procedure: Pulses reassessed and unchanged. PERRLA. 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 No VTE prophylaxis required. Medication's Wasted: Lidocaine 1% = 10 mL. Medication's Wasted: Nitro = 49.8 mcg. Medication's Wasted: Other = Fentanyl 50mcg Versed 1 mg. Total IV fluids: 65 mL. Vital chart was stopped. Post-op diagnosis: Stent to RCA. Complications: None. Estimated blood loss: 5mL-10mL. Responsiveness - Normal response to verbal stimuli; alert and oriented, PERRLA. Airway - Unaffected, no intervention required; spontaneous ventilation. Circulation: W/N/L, pulses unchanged. Nausea/Vomiting: No. Procedure completed. Medication's Wasted: Heparin = 4000 units. Patient transferred by bed to 1st floor. Access Site Site: Right Radial artery Sheath Size: 6 Fr Hemostasis Method: TR Band Hemostasis Success: Successful Site: Right Femoral artery Sheath Size: 6 Fr Hemostasis Method: Suture Hemostasis Success: Successful Procedure Medications Start: 12:04 PM Stop: 12:04 PM Medication: Versed Amount: 1 mg Route: I.V. Start: 12:04 PM Stop: 12:04 PM Medication: Fentanyl Amount: 50 mcg Route: I.V. Start: 12:09 PM Stop: 12:09 PM Medication: Nitrogylcerin Amount: 200 mcg Route: I.A. Start: 12:31 PM Stop: 12:31 PM Medication: Heparin Amount: 4000 units Route: I.V. Start: 12:38 PM Stop: 12:38 PM Medication: Heparin Amount: 1000 units Route: I.V. Start: 12:41 PM Stop: 12:41 PM Medication: Aggrastat 12.5 mg/250 mL Amount: 45 ml Route: I.V. bolus Start: 12:41 PM Stop: 12:41 PM Medication: Aggrastat 12.5 mg/250 mL Amount: 16.2 ml/hr Route: I.V. drip Start: 12:54 PM Stop: 12:54 PM Medication: Plavix Amount: 300 mg Route: P.O. Start: 12:59 PM Stop: 12:59 PM Medication: Heparin Amount: 1000 units Route: I.V. I, the attending physician, have reviewed and verified all procedure medications. Yes, all medications given per verbal order History/Risk Factors Hypertension: Yes Dyslipidemia: No Peripheral Arterial Disease (PAD): No Myocardial Infarction (RI): No Obesity: No Renal Disease: No Tobacco Use: Never Prior Interventions PCI: No CABG: No Valve Surgery: No Report Signatures Finalized by Nain Horn MD on 04/18/2024 06:07 PM
--- NOTE | 2024-04-04 11:59 | ECG_ITS ---
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 Measurements Intervals [place] Rate: 56 P: 47 NH: 144 QRS: -29 QRSD: 96 T: 13 QT: 462 QTc: 446 Interpretive Statements SINUS BRADYCARDIA BORDERLINE LEFT AXIS DEVIATION [QRS AXIS < -20] Nonspecific ST-T changes in the anterolateral and inferior leads LOW QRS VOLTAGE IN PRECORDIAL LEADS [QRS DEFLECTION < 1.0 mV IN CHEST LEADS] PATTERN CONSISTENT WITH PULMONARY DISEASE LEFT VENTRICULAR HYPERTROPHY AND ST-T CHANGE [VOLTAGE CRITERIA PLUS ST/T ABNORMALITY] No previous ECG available for comparison Electronically Signed On 04-04-2024 23:29:44 CDT by Sudhakar Craven M.D. [id number]
--- NOTE | 2024-04-04 12:06 | P.CONIM_ITS ---
Providers/Reason For Consult 2 Consulting Physician/Specialty*: Luis Toth MD Reason for Consult*: Medical management. Requesting Physician: Dr. Horn Primary Care Provider: Jocelyn Lopez DO History of Present Illness History of Present Illness Stephanie Hanson is a 73 year old female who presented to the hospital with complaints of chest discomfort. She also had a significant amount of reflux symptoms starting last night. Upon evaluation in the emergency department dynamic changes an EKG was noted, as well as elevated troponin. She was taken immediately to angiogram lab for evaluation and found to have an RCA lesion which was stented. Plavix, heparin, aspirin had all been initiated. Patient reports she has had diabetes for quite some time but hemoglobin A1c has shown good control. She has not been started on any medication for it. Although Ozempic was prescribed in the past she never started this medicine. Medications/Allergies Home Medications Medication Instructions Recorded Confirmed Last Taken Type allopurinol 300 mg tablet 300 mg PO DAILY 08/27/20 04/04/24 04/04/24 History alprazolam 0.25 mg tablet 0.25 mg PO BID PRN Anxiety 08/27/20 04/04/24 Unknown History biotin 2,500 mcg capsule 5,000 mcg PO DAILY 08/27/20 04/04/24 04/03/24 History bupropion HCl 150 mg 24 hr tablet, 150 mg PO BID 08/27/20 04/04/24 04/04/24 History extended release lubiprostone 24 mcg capsule 24 mcg PO DAILY 08/27/20 04/04/24 04/04/24 History (Amitiza) metoprolol tartrate 50 mg tablet 50 mg PO DAILY 08/27/20 04/04/24 04/04/24 History multivitamin (Multiple Vitamins 1 tab PO DAILY 08/27/20 04/04/24 04/03/24 History tablet) omeprazole 20 mg tablet,delayed 20 mg PO DAILY 08/27/20 04/04/24 04/04/24 History release ropinirole 1 mg tablet 1 mg PO DAILY 08/27/20 04/04/24 04/04/24 History valsartan 160 mg tablet 160 mg PO DAILY 08/27/20 04/04/24 04/04/24 History PTT Supinator to the left #1 ea 04/28/21 04/04/24 Unknown Rx cefuroxime axetil 500 mg tablet 500 mg PO BID #60 tabs 08/25/22 04/04/24 04/04/24 Rx hydrocodone 7.5 mg-acetaminophen 1 tab PO Q6H PRN Pain 04/04/24 04/04/24 Unknown History 325 mg tablet levothyroxine 50 mcg tablet 50 mcg PO QAM 04/04/24 04/04/24 04/04/24 History montelukast 10 mg tablet 10 mg PO BEDTIME 04/04/24 04/04/24 Unknown History semaglutide 0.25 mg or 0.5 mg (2 0.25 mg SUBCUT Q7D 04/04/24 04/04/24 Unknown History mg/3 mL) subcutaneous pen injector (Ozempic) Allergies Allergy/AdvReac Type Severity Reaction Status Date / Time Penicillins Allergy Unknown Verified 10/03/22 17:48 Zzecmtp-GKN-UqO Reductase Allergy Unknown Verified 10/03/22 17:48 Inhibitor [Efgdqdj-Fjs-Pkq Reductase Inhibitor] tramadol Allergy rash Verified 10/03/22 17:48 Current Medications Generic Name Dose Route Start Last Admin Trade Name Freq PRN Reason Stop Dose Admin Heparin Sodium (Porcine) 0 unit 04/04/24 11:12 04/04/24 11:47 Heparin 5,000 Unit/Ml Inj 1 Ml IV 4,000 unit PRN PRN Administration Heparin weight-base protocol Protocol Sodium Chloride 1,000 mls @ 999 mls/hr 04/04/24 11:18 04/04/24 11:26 Sodium Chloride 0.9% IV 04/04/24 12:18 999 mls/hr .Q1H1M ONE Administration PFSH Acute 2 PFSH: Medical History (Updated 04/04/24 @ 14:51 by Luis Toth MD) GERD (gastroesophageal reflux disease) Gout Depression with anxiety Hypothyroidism Chronic kidney disease Recurrent UTI Urgency incontinence Left renal stone History of torn meniscus of right knee History of kidney stones Surgical History History of hysterectomy History of tonsillectomy and adenoidectomy Family History Father CAD (coronary artery disease) Cancer Grandfather CAD (coronary artery disease) Hypertension Grandmother CAD (coronary artery disease) Hypertension Mother Hypertension Stroke Social History Second hand smoke exposure: No Alcohol intake: never Substance/Drug Use: never Marital status: Current occupational status: retired Vitals/I&O/Wt Last Vital Signs Temp 98.1 F 04/04/24 08:15 Pulse 59 L 04/04/24 11:33 Resp 18 04/04/24 11:33 BP 110/76 04/04/24 09:43 Pulse Ox 95 04/04/24 11:33 O2 Del Method Nasal Cannula 04/04/24 11:33 O2 Flow Rate 2 04/04/24 11:33 Weight last 48 hrs Weight 88.904 kg Physical Exam 2 Narrative: General exam is a white female, reporting some persistent heartburn feelings but overall better HEENT: Atraumatic normocephalic. Oropharynx clear Neck is supple no lymphadenopathy thyromegaly Cardiovascular regular rate and rhythm, no murmur Lungs clear no wheezing or crackles Abdomen is soft nontender positive bowel sounds. No obvious organomegaly exam deferred. Extremities right wrist with IT band. Right groin currently with pressure device. Feet are cool. Pulses somewhat difficult to feel. No skin breakdown. Cap refill less than 4 seconds. Neuro no focal deficits Data 04/04/24 08:32 04/04/24 08:32 Other Labs: Troponin baseline 300 with repeat of 476 Albumin and calcium are normal AST and ALT are 87 and 51 respectively Chest x-ray by my read demonstrates a prosthetic shoulder, no infiltrate Initial EKG demonstrates sinus rhythm, left axis deviation, T wave inversion in some anterior precordial leads, equivocal ST and T wave changes in inferior and lateral leads. A&P Assessment and plan (1) NSTEMI (non-ST elevated myocardial infarction): Cardiology has added Plavix, aspirin. Evaluation tomorrow morning whether patient's beta-alex and ARB should be continued. Likely these can be readded but patient was bradycardic on arrival. Dose adjustments may occur. Intervention to RCA as per cardiology. Importance of Plavix will be discussed. Echocardiogram pending Telemetry Statin is indicated. Unfortunately an allergy is listed. Other options will need to be discussed with cardiology, if statin allergy is confirmed and she is truly not a candidate. (2) Diabetes: Patient with history of diabetes, and per her history A1c has been controlled with last 1 being done around 5 to 6 months ago. Repeat A1c Consistent carb diet Sliding scale insulin for now, further recommendations based on A1c (3) Hypertension: Close monitoring of blood pressure overnight, with resumption of valsartan and metoprolol tomorrow if indicated. Plan Possible peripheral vascular disease. Consider outpatient evaluation Reflux. Protonix initiated. She is on Prilosec at home. Hypothyroidism, check TSH Other medical problems as outlined in past medical history Consult Attestations 2 Medical Necessity Statement: As per primary Thank you for this consultation Diagnoses NSTEMI (non-ST elevated myocardial infarction) I21.4 Diabetes E11.9 Hypertension I10 Time Spent (min) 43
--- NOTE | 2024-04-04 13:34 | PC.NURSE ---
Patient presents to [facility] at 1330. 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 She has a right radial TR-band and a right femoral sheath with a fem-stop placed by brush clearing laborer.
--- NOTE | 2024-04-04 14:29 | USCV_ITS ---
Stephanie Hanson Age: 73 Gender: F : 1950 Exam Date: 04/04/2024 21:04 Ordering Phys: Nain Horn M.D ([email or web address]) Technologist: DAR Exam Location: [facility] [place] Indication: NSTEMI s/p cardiac catheterization. BP: 110 / 76 HR: 70 Rhythm: Sinus Technical Quality: Adequate MEASUREMENTS (Male / Female) Normal Values 2D ECHO LV Diastolic Diameter PLAX 5.0 cm 4.2 - 5.9 / 3.9 - 5.3 cm IVS Diastolic Thickness 1.0 cm 0.6 - 1.0 / 0.6 - 0.9 cm IVS Systolic Thickness 2.1 cm LVPW Diastolic Thickness 1.2 cm 0.6 - 1.0 / 0.6 - 0.9 cm LVPW Systolic Thickness 1.5 cm LVOT Diameter 1.9 cm LV Ejection Fraction 2D Teich 68.3 % LV Ejection Fraction MOD 4C 60.2 % LV Ejection Fraction MOD 2C 64.7 % LV Ejection Fraction 2C AL 66.0 % LA Diameter 3.9 cm Aorta at Sinotubular Diameter 2.3 cm IVC Diameter 1.8 cm M-MODE LA Ao Ratio MM 1.7 AV Cusp Separation MM 1.7 cm DOPPLER AV Peak Velocity 136.0 cm/s LVOT Peak Velocity 77.0 cm/s AV Area Cont Eq vti 1.9 cm squared AV Area Cont Eq pk 1.6 cm squared MV Peak Velocity 95.0 cm/s MV Area PHT 3.7 cm squared Mitral E to A Ratio 0.8 TR Peak Velocity 224.0 cm/s TR Peak Gradient 20.1 mmHg TV Peak E Velocity 32.0 cm/s Right Atrial Pressure 3.0 mmHg Pulmonary Artery Systolic Pressu 23.1 mmHg PV Peak Velocity 92.0 cm/s FINDINGS Left Ventricle Left ventricle is normal in size. LV systolic function is mildly reduced with EF of 45-50%. Moderate to severe hypokinesis of inferolateral and inferior cain. Grade 1 diastolic dysfunction Right Ventricle Normal in size and function Right Atrium Normal in size Left Atrium Normal in size Mitral Valve Structurally normal mitral valve. Aortic Valve Structurally normal aortic valve Tricuspid Valve Insufficient TR jet to calculate RVSP Pulmonic Valve Not well visualized Pericardium Normal Aorta Normal in size IVC Appears to be normal CONCLUSIONS LV systolic function is mildly reduced with EF of 45 to 50%. Above-mentioned regional wall motion abnormalities Grade 1 diastolic dysfunction. No gross valvular abnormalities No comparison studies are available Nain Horn MD (Electronically Signed) Final Date: 05 April 2024 08:51 S
[2024-04-04] MEDS: sodium chloride 0.9% 1,000 ML 100 ML IV (14:35)
--- NOTE | 2024-04-04 15:25 | ECG_ITS ---
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 Measurements Intervals [place] Rate: 60 P: 6 LA: 144 QRS: 100 QRSD: 84 T: 90 QT: 444 QTc: 446 Interpretive Statements SINUS RHYTHM PATTERN CONSISTENT WITH PULMONARY DISEASE POSSIBLE RIGHT VENTRICULAR HYPERTROPHY [SOME/ALL OF: PROMINENT R IN V1, LATE TRANSITION, RAD, NIKO, SSS] ST DEVIATION AND MODERATE T-WAVE ABNORMALITY, CONSIDER LATERAL ISCHEMIA [-0.1+ mV T-WAVE IN I/aVL/V5/V6] Compared to ECG 04/04/2024 11:11:46 T-wave abnormality now present Possible ischemia now present Sinus bradycardia no longer present Left ventricular hypertrophy no longer present ST (T wave) deviation no longer present Electronically Signed On 04-04-2024 23:32:26 CDT by Sudhakar Craven M.D. [id number]
[2024-04-04 15:27] LABS: Estmated Average Glucose 255; Hemoglobin A1C 10.5 % (4.0-6.0)
[2024-04-04 15:30] LABS: Troponin 5 6HR 5220 ng/L (0-10); Troponin 5 6HR Delta 4915 ng/L (0-12)
[2024-04-04 15:34] LABS: Thyroid Stimulating Hormone 3.62 uIU/mL (0.27-4.20)
[2024-04-04 16:25] LABS: Glucose Point of Care 213 mg/dL (70-110)
--- NOTE | 2024-04-04 16:43 | PC.NURSE ---
Dr Horn called at 1630 and ordered to remove the femstop now and then wait until the PTT comes back to pull the sheath.
[2024-04-04 17:05] LABS: Partial Thromboplastin Time 56.6 SECONDS (23.9-36.7)
[2024-04-04] MEDS: pantoprazole DR 40 mg Tablet PO (18:27)
[2024-04-04] MEDS: buPROPion XL (24 HR) 150 mg Tablet PO (18:27)
[2024-04-04] MEDS: insulin lispro 100 unit/1 mL SUBCUT ×2 (18:27→20:54)
--- NOTE | 2024-04-04 19:31 | PC.NURSE ---
Patient's right groining sheath is removed at 1753. Hemastasis is obtained at 1753. Manual pressure is held for 20 minutes. Vitals remained stable throughout. A dressing of 4 x 4 and tegaderm is applied. Patient tolerated this well. Right radial TR-Band air is removed slowly and removed.
[2024-04-04 19:53] LABS: Glucose Point of Care 193 mg/dL (70-110)
[2024-04-04] MEDS: atorvastatin 40 mg Tablet PO (20:55)
[2024-04-05 00:41] VITALS: BP 101/53; PULSE 66; RESP 16; TEMP 36.8; O2SAT 90
[2024-04-05] MEDS: acetaminophen 325 mg Tablet 650 MG PO (03:39)
[2024-04-05 04:00] VITALS: BP 102/57; PULSE 72; RESP 12; TEMP 36.9; O2SAT 92
[2024-04-05] MEDS: levothyroxine 50 mcg Tablet PO (05:15)
[2024-04-05 05:41] LABS: Basophils # 0.1 10^3/uL (0.0-0.1); Basophils % 0.6 %; Eosinophils # 0.4 10^3/uL (0.0-0.8); Hematocrit 40.1 % (36-47); Lymphocytes # 2.8 10^3/uL (0.8-4.8); Lymphocytes % 28.4 %; Mean Corpuscular HGB Conc 33.2 g/dL (30-55); Mean Corpuscular Hemoglobin 31.8 pg (27-33); Mean Corpuscular Volume 95.9 fl (85-98); Monocytes # 0.8 10^3/uL (0.2-0.9); Monocytes % 7.6 %; Neutrophils % 59.2 %; Nucleated Red Blood Cells % 0 %; Platelet Count 283 10^3/cmm (157-399); Red Blood Count 4.18 10^6/uL (3.85-5.65); Red Cell Distribution Width 12.8 % (12.1-15.1); White Blood Count 9.81 10^3/uL (3.29-11.43)
[2024-04-05 06:00] VITALS: PULSE 78
[2024-04-05 06:00] LABS: Anion Gap 15.5 (5-19); Blood Urea Nitrogen 29 mg/dL (8-23); Carbon Dioxide 21 mmol/L (22-29); Chloride 103 mmol/L (98-107); Creatinine Clr Calc Pharmacy 50.7364; Glucose 163 mg/dL (65-115); Osmolality Calculated 289 mOsm/kg (285-295); Potassium 4.5 mmol/L (3.5-5.1); Sodium 135 mmol/L (136-145)
[2024-04-05 06:19] LABS: Glucose Point of Care 156 mg/dL (70-110)
[2024-04-05 08:00] VITALS: BP 112/59; PULSE 73; RESP 19; TEMP 36.3; O2SAT 92
[2024-04-05] MEDS: clopidogrel 75 mg Tablet PO (09:01)
[2024-04-05] MEDS: buPROPion XL (24 HR) 150 mg Tablet PO (09:01)
[2024-04-05] MEDS: allopurinol 300 mg Tablet PO (09:01)
[2024-04-05] MEDS: pantoprazole DR 40 mg Tablet PO (09:01)
[2024-04-05] MEDS: aspirin 81 mg EC Tablet PO (09:01)
[2024-04-05] MEDS: insulin lispro 100 unit/1 mL SUBCUT (09:02)
[2024-04-05] MEDS: metoprolol tartrate 25 mg Tablet 12.5 MG PO (09:34)
--- NOTE | 2024-04-05 09:48 | P.DS_ITS ---
Discharge Providers Date of Admission: 04/04/24 12:12 Date of Discharge: April 05, 2024 Attending Provider at Admission: Nain Horn MD Attending Provider at Discharge: Nain Horn MD Primary Care Provider: Jocelyn Lopez DO Diagnoses at Discharge Discharge Diagnosis (1) NSTEMI (non-ST elevated myocardial infarction): Status: Acute (2) Diabetes: Status: Acute (3) Hypertension: Status: Acute Reason for Visit Reason for Visit: chest pain, back pain, burping Brief History: 73 year old female with past medical his tory of diabetes, hypertension who presented to hospital with chest pain, back pain and indigestion. She says chest pain started last night. It comes and goes but mostly has stayed. Still having significant indigestion and nausea. EKG shows dynamic ST changes in inferior leads not meeting STEMI criteria. Initial troponin was 305 that trended up to 476 at 2 hours. Her diabetes is poorly controlled and per patient last HbA1c was 11. Hospital Course Hospital Course Patient underwent urgent coronary angiogram that showed total occlusion of mid to distal RCA. She had successful revascularization with 1 stent. Patient stayed stable overnight and plan for discharge on dual antiplatelet therapy. Echo shows mildly reduced LV systolic function with EF of 45-50%. Medicine team was consulted for management of medical issues including diabetes. Outpatient medications for diabetes per medicine team Physical Exam Narrative: GENERAL: Patient is alert, awake and oriented x3. [] NECK: No jugular vein distension. [] HEENT: No cyanosis. No icterus. No pallor. [] HEART: Regular S1 and S2. No murmur, rub or gallop. [] LUNGS: Clear to auscultate bilaterally. [] CENTRAL NERVOUS SYSTEM: Grossly nonfocal. [] EXTREMITIES: Lower extremities with 1+ edema bilaterally. Discharge Data Studies Completed and Pending Completed Studies During Hospitalization Category Date Time Status XR chest 1V portable [id number] Stat Exams 04/04/24 08:26 Completed CV. 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 Laboratory Results WBC 9.81 10^3/uL (3.29-11.43) 04/05/24 05:09 RBC 4.18 10^6/uL (3.85-5.65) 04/05/24 05:09 Hgb 13.30 g/dL (11.27-16.99) 04/05/24 05:09 Hct 40.1 % (36-47) 04/05/24 05:09 MCV 95.9 fl (85-98) 04/05/24 05:09 MCH 31.8 pg (27-33) 04/05/24 05:09 MCHC 33.2 g/dL (30-55) 04/05/24 05:09 RDW 12.8 % (12.1-15.1) 04/05/24 05:09 Plt Count 283 10^3/cmm (157-399) 04/05/24 05:09 MPV 11.0 fL (7.4-10.4) H 04/05/24 05:09 Neut % (Auto) 59.2 % 04/05/24 05:09 Lymph % (Auto) 28.4 % 04/05/24 05:09 [place] % (Auto) 7.6 % 04/05/24 05:09 Eos % (Auto) 4.0 % 04/05/24 05:09 Baso % (Auto) 0.6 % 04/05/24 05:09 Neut # (Auto) 5.80 10^3/uL (1.8-7.7) 04/05/24 05:09 Lymph # (Auto) 2.8 10^3/uL (0.8-4.8) 04/05/24 05:09 [place] # (Auto) 0.8 10^3/uL (0.2-0.9) 04/05/24 05:09 Eos # (Auto) 0.4 10^3/uL (0.0-0.8) 04/05/24 05:09 Baso # (Auto) 0.1 10^3/uL (0.0-0.1) 04/05/24 05:09 Nucleated RBC % (auto) 0 % 04/05/24 05:09 Nucleated RBCs # 0.0 /100WBC 04/05/24 05:09 APTT 56.6 SECONDS (23.9-36.7) H 04/04/24 16:30 Sodium 135 mmol/L (136-145) L 04/05/24 05:09 Potassium 4.5 mmol/L (3.5-5.1) 04/05/24 05:09 Chloride 103 mmol/L (98-107) 04/05/24 05:09 Carbon Dioxide 21 mmol/L (22-29) L 04/05/24 05:09 Anion Gap 15.5 (5-19) 04/05/24 05:09 BUN 29 mg/dL (8-23) H 04/05/24 05:09 Creatinine 1.1 mg/dL (0.5-0.9) H 04/05/24 05:09 GFR Calculation Not Reportable 04/05/24 05:09 Glucose 163 mg/dL (65-115) H 04/05/24 05:09 POC Glucose 156 mg/dL (70-110) H 04/05/24 06:16 Estimat Average Glucose 255 04/04/24 08:32 Hemoglobin A1c 10.5 % (4.0-6.0) H 04/04/24 08:32 Calculated Osmolality 289 mOsm/kg (285-295) 04/05/24 05:09 Calcium 9.0 mg/dL (8.5-10.5) 04/05/24 05:09 Total Bilirubin 0.4 mg/dL (0.15-1.2) 04/04/24 08:32 AST 87 U/L (0-32) H 04/04/24 08:32 ALT 51 U/L (0-33) H 04/04/24 08:32 Alkaline Phosphatase 99 U/L (35-105) 04/04/24 08:32 Troponin T Baseline 305 ng/L (0-10) H* 04/04/24 09:32 Troponin T 120 Minute 476.8 ng/L (0-10) H 04/04/24 10:11 Delta Troponin T 171.8 ABS# (0-10) H* 04/04/24 10:11 Troponin T Hi Sens 6Hr 5220 ng/L (0-10) H 04/04/24 14:54 Troponin T Hi Sens 6Hr Delta 4915 ng/L (0-12) H* 04/04/24 14:54 Total Protein 7.6 g/dL (6.6-8.7) 04/04/24 08:32 Albumin 3.8 g/dL (3.5-5.2) 04/04/24 08:32 Globulin 3.8 g/dL (1.3-4.6) 04/04/24 08:32 TSH 3.62 uIU/mL (0.27-4.20) 04/04/24 08:32 Vitals Last Vital Signs Temp 97.3 F L 04/05/24 08:00 Pulse 73 04/05/24 08:00 Resp 19 H 04/05/24 08:00 BP 112/59 04/05/24 08:00 Pulse Ox 92 04/05/24 08:00 O2 Del Method Room Air 04/05/24 08:00 O2 Flow Rate 2 04/04/24 11:33 Discharge Plan Discharge Patient Disposition: Home Condition: Stable Prescriptions: New atorvastatin 40 mg Tablet 40 mg PO BEDTIME Qty: 30 0RF clopidogrel 75 mg Tablet 75 mg PO DAILY Qty: 90 3RF aspirin 81 mg Tablet,Delayed Release (Dr/Ec) 81 mg PO DAILY Qty: 30 0RF metoprolol tartrate 25 mg Tablet 12.5 mg PO BID@0900,2100 Qty: 30 0RF metformin 500 mg tablet 500 mg PO BID Qty: 60 0RF losartan 25 mg tablet 25 mg PO DAILY Qty: 90 3RF Continued (DME) PTT Supinator to the left See Rx Instructions .Route .MEDSUPPLY Qty: 1 0RF Rx Instructions: As directed bupropion HCl 150 mg tablet extended release 24 hr 150 mg PO BID omeprazole 20 mg tablet,delayed release (DR/EC) 20 mg PO DAILY allopurinol 300 mg tablet 300 mg PO DAILY Amitiza 24 mcg capsule 24 mcg PO DAILY ropinirole 1 mg tablet 1 mg PO DAILY alprazolam 0.25 mg tablet 0.25 mg PO BID PRN (Reason: Anxiety) biotin 2,500 mcg capsule 5,000 mcg PO DAILY multivitamin [Multiple Vitamins] Tablet 1 tab PO DAILY cefuroxime axetil 500 mg tablet 500 mg PO BID Qty: 60 2RF levothyroxine 50 mcg tablet 50 mcg PO QAM hydrocodone-acetaminophen 7.5-325 mg tablet 1 tab PO Q6H PRN (Reason: Pain) montelukast 10 mg tablet 10 mg PO BEDTIME Discontinued valsartan 160 mg tablet 160 mg PO DAILY metoprolol tartrate 50 mg tablet 50 mg PO DAILY Ozempic 0.25 mg or 0.5 mg (2 mg/3 mL) pen injector 0.25 mg SUBCUT Q7D Discharge Orders: Discharge Order (Routine); Ordered 04/05/24 Ordered By: Nain Horn Referrals: Crystal Karimi FNP [Nurse Practitioner] - 04/25/24 1:30 pm Jocelyn Lopez DO [Primary Care Provider] - Patient Instructions: Coronary Angioplasty (DC), Opioid Safety, Post Angiogram Home Care Instructions, Post Heart Attack Stoplight Activity Restrictions/Additional Instructions: You may start metformin on 04/08. Keep track of your blood sugars and bring to your primary care provider. They may choose to initiate Ozempic or empagliflozin. Consistent carb diet Discharge Attestations Time Spent in Discharge Care*: less than 30 min Quality Metrics Clinical Quality Measures [ Acute Myocardial Infaction { Clinical Trial Participant: No; Contraindication to aspirin: None; Aspirin prescribed; Contraindication to statin: None; Statin prescribed; Contraindication to PCI: None; PCI performed;}] Coding Level of Care Code Acute Code for [facility] Diagnoses NSTEMI (non-ST elevated myocardial infarction) I21.4 Diabetes E11.9 Hypertension I10
--- NOTE | 2024-04-05 09:55 | P.PN_ITS ---
Subjective 2 Subjective: Stephanie reports she is feeling okay today. No heartburn or reflux. No chest discomfort. No issues with bleeding at her radial wrist site or right groin. Medications: Reviewed: Yes Vitals/I&O/Wt Last Vital Signs Temp 97.3 F L 04/05/24 08:00 Pulse 73 04/05/24 08:00 Resp 19 H 04/05/24 08:00 BP 112/59 04/05/24 08:00 Pulse Ox 92 04/05/24 08:00 O2 Del Method Room Air 04/05/24 08:00 O2 Flow Rate 2 04/04/24 11:33 04/04/24 04/05/24 04/05/24 22:59 06:59 14:59 Intake Total 300 / 300 1250 / 1550 Output Total 300 / 300 Balance 0 / 0 1250 / 1250 Weight last 48 hrs Weight 94.347 kg Weight 94.347 kg Weight 88.904 kg Physical Exam 2 Narrative: General exam no distress Neck is supple no lymphadenopathy thyromegaly Cardiovascular regular rate and rhythm, no murmur Lungs clear no wheezing or crackles Abdomen is soft nontender positive bowel sounds. No obvious organomegaly Extremities right wrist and right groin with no significant mass, or bruit. Distal perfusion and muscular/nerve function intact. Dorsalis pedis intact, right radial artery with good pulse. Data 04/05/24 05:09 04/05/24 05:09 A&P Assessment and plan (1) NSTEMI (non-ST elevated myocardial infarction): Metoprolol 12.5 mg twice daily discharge Plavix and aspirin at discharge I discussed with the patient adding statin and she is agreeable. She will monitor for any muscle pain. She received an RCA stent at this hospitalization Echocardiogram demonstrated slight reduction in EF, inferior wall motion abnormalities as expected (2) Diabetes: Patient with history of diabetes, and per her history A1c has been controlled with last 1 being done around 5 to 6 months ago. A1c significantly elevated Consistent carb diet Initiate metformin 500 mg twice daily. Patient has not been taking Ozempic. Discussed Ozempic, glucosuria drugs that could be added at next office visit. Metformin will start 72 hours following angiogram. (3) Hypertension: Stable currently Plan Possible peripheral vascular disease. Consider outpatient evaluation Reflux. Protonix initiated. She is on Prilosec at home. Hypothyroidism, TSH normal on supplementation Other medical problems as outlined in past medical history Attestations 2 Medical Necessity Statement*: As per primary Diagnoses NSTEMI (non-ST elevated myocardial infarction) I21.4 Diabetes E11.9 Hypertension I10 Time Spent (min) 23
[2024-04-05 11:00] VITALS: BP 112/59; PULSE 73; RESP 19; TEMP 36.3; O2SAT 92
--- NOTE | 2024-04-05 11:29 | PC.CHAP ---
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 [] Patient/Family/Request visit [] Outpatient visit [] Follow-up visit [] Physician referral [] Code/Alert [x] Routine visit [] Staff referral [] Actively dying [] Patient sleeping [] Family support [] [] Out of room [X] Palliative care [] [] Receiving care in room [] Pre-surgical visit [] Trauma [] Long length of stay [] ICU visit [] Other: Relational/Emotional Strength [] Patient feels connected with others/family/visitors/staff [] Distress [] Loneliness/isolation [] Abandonment Spirituality of Patient [] Person of Marifer [] Attends Confucianist of their Marifer [] Believes in Prayer [] Reads Bible or Sikh materials [] There are Spiritual issues to be addressed 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 [] Prayer [] Active listening [] Non-anxious presence [] Spiritual/emotional support [] Crisis/trauma care [] Spiritual counseling [] Bereavement support [] Provided bereavement packet [] Provided Bible/devotional materials [] Provided toy/stuffed animal, coloring book to patient or family member [] Provided Communion [] Anointing/[place] [] Salvation [] Completed spiritual assessment [] Other: Impact on Illness or Injury [] Angry [] Fearful [] Anxious [] Often cries [] Exhaustion [] Unable to work [] Unable to attend yazidism [] Unable to walk/stand [] Unable to read [] Unable to drive [] Unable to eat/drink [] Unable to sleep [] Unable to be with family [] Patient intubated [] Other: Summary Staff in room Time spent with patient
== END 2024-04-05 11:50 | disposition home or self-care (01) ==
LOC: ER 08:29 → CSU 12:27
PROVIDERS: Internal Medicine; Admitting Provider Internal Medicine; Emergency Provider Family Medicine; PCP Family Medicine; Visit Provider Internal Medicine
DX: I21.4 Non-ST elevation (NSTEMI) myocardial infarction (principal); E11.9 Type 2 diabetes mellitus without complications; I10 Essential (primary) hypertension; E03.9 Hypothyroidism, unspecified; K21.9 Gastro-esophageal reflux disease without esophagitis
CPT/HCPCS: 36415; 36416; 71045; 80048; 80053; 82962; 83036; 84443; 84484; 85025; 85347; 85730; 93005; 93306; 93454; 96365; 96366; 96372; 96374; 96375; 99152; 99153; 99285; C1725; C1769; C1874; C1887; C1894; C9600; G0378; J1644; J1815; J2250; J2405; J3010; J3490; J7030; Q9967

== ENCOUNTER → 2024-04-25 13:53 | Outpatient (BNVA) | payer MEDICARE, OTHER, MEDICAID, SELFPAY | PROVIDERS: PCP Family Medicine; Visit Provider Nurse Practitioner Family | DX: I13.0 Hypertensive heart and chronic kidney disease with heart failure and stage 1 through stage 4 chronic kidney disease, or unspecified chronic kidney disease (principal); I50.22 Chronic systolic (congestive) heart failure; N18.9 Chronic kidney disease, unspecified; N39.0 Urinary tract infection, site not specified | CPT/HCPCS: 99214 ==

== ENCOUNTER → 2024-07-01 08:37 | Outpatient (BNVA) | payer MEDICARE, OTHER, MEDICAID, SELFPAY | PROVIDERS: PCP Family Medicine; Visit Provider Internal Medicine Cardiovascular Disease | DX: I25.10 Atherosclerotic heart disease of native coronary artery without angina pectoris (principal); I73.9 Peripheral vascular disease, unspecified; I10 Essential (primary) hypertension | CPT/HCPCS: 99214 ==

== ENCOUNTER 2024-07-11 08:00 | Outpatient (CLI) | payer MEDICARE, OTHER, SELFPAY ==
--- NOTE | 2024-07-11 08:00 | CTR_ITS ---
PROCEDURE INFORMATION: Exam: CTA Abdominal Aorta and Bilateral Lower Extremities (Run-off) With Contrast Exam date and time: 07/11/2024 9:41 AM Age: 73 years old Clinical indication: Other: Pvd; Prior surgery; Surgery date: 6+ months; Surgery type: Lithro, cardiac stents, hyst, RT knee TECHNIQUE: Imaging protocol: Computed tomographic angiography of the of the abdominal aorta, pelvis and bilateral lower extremities with contrast. 3D rendering (Not supervised by radiologist): MIP and/or 3D reconstructed images were created by the technologist. Radiation optimization: All CT scans at this facility use at least one of these dose optimization techniques: automated exposure control; mA and/or kV adjustment per patient size (includes targeted exams where dose is matched to clinical indication); or iterative reconstruction. Contrast material: OMNI 350; Contrast volume: 120 ml; Contrast route: INTRAVENOUS (IV); COMPARISON: CT kidney stone [id number] 12/05/2017 12:54 PM RADIATION DOSE METRICS: Total DLP (mGy-cm): 1611 FINDINGS: Aorta: No aortic aneurysm. No aortic dissection. Celiac trunk and mesenteric arteries: No occlusion or significant stenosis. Renal arteries: No occlusion or significant stenosis. Right iliac arteries: No occlusion or significant stenosis. Right femoral/popliteal arteries: No occlusion or significant stenosis. Right infrapopliteal arteries: No occlusion or significant stenosis. Left iliac arteries: No occlusion or significant stenosis. Left femoral/popliteal arteries: No occlusion or significant stenosis. Left infrapopliteal arteries: No occlusion or significant stenosis. Other arteries: No hemodynamically significant arterial disease. Liver: Hepatic steatosis. Gallbladder and biliary ducts: Unremarkable. No calcified stones. No ductal dilation. Pancreas: Unremarkable. No mass. No ductal dilation. Spleen: Normal. No splenomegaly. Adrenal glands: Normal. No mass. Kidneys and ureters: Atrophic right kidney. Each kidney has a lobular contour. Small left renal cyst. Stomach and bowel: Diverticulosis without evidence of diverticulitis. Appendix: No evidence of appendicitis. Urinary bladder: Unremarkable. No mass. Reproductive: Unremarkable as visualized. Intraperitoneal space: Unremarkable. No free air. No significant fluid collection. Lymph nodes: No lymphadenopathy. Bones/joints: No acute fracture. No dislocation. Soft tissues: Unremarkable. CT/CT angio abd aorta runof [id number] IMPRESSION: 1. No acute subdiaphragmatic pathology. 2. Small right kidney. 3. No significant stenosis or occlusion.
[2024-07-11] MEDS: iohexol 350 mg/mL 500 mL Btl (per mL) IV (10:44)
[2024-07-11 10:45] LABS: Blood Urea Nitrogen 18 mg/dL (8-23)
== END 2024-07-11 09:01 | disposition home or self-care (01) ==
PROVIDERS: PCP Family Medicine; Visit Provider Internal Medicine Cardiovascular Disease
DX: I73.9 Peripheral vascular disease, unspecified (principal); K76.0 Fatty (change of) liver, not elsewhere classified; N27.0 Small kidney, unilateral; N28.1 Cyst of kidney, acquired
CPT/HCPCS: 75635; 82565; 84520

== ENCOUNTER → 2024-08-13 10:53 | Outpatient (BNVA) | payer MEDICARE, OTHER, SELFPAY | PROVIDERS: PCP Family Medicine; Visit Provider Nurse Practitioner Family | DX: I83.813 Varicose veins of bilateral lower extremities with pain (principal); I25.10 Atherosclerotic heart disease of native coronary artery without angina pectoris; I73.9 Peripheral vascular disease, unspecified | CPT/HCPCS: 99214 ==

== ENCOUNTER 2024-08-15 10:55 | Outpatient (CLI) | payer MEDICARE, OTHER, SELFPAY ==
--- NOTE | 2024-08-15 11:16 | XR_ITS ---
WS: [id number] Exam: XR lumbar spine 2-3V* [id number] Date/Time of Exam: 08/15/2024 11:21 AM Reason For Exam: chronic midline low back pain with sciatica No fracture noted. Degenerative disc change at L1-2, L2-3, L3-4 and L5-S1. Mild spondylosis. Facet ar thropathy at all levels. Mild degenerative retrolisthesis of L2 on L3. Dextroscoliosis of the upper l umbar spine. DJD of the bilateral SI joints. Small calcification superimposes the lower pole the LEFT kidney and could represent a renal calculus. XR/XR lumbar spine 2-3V* [id number] IMPRESSION: 1. Moderate degenerative changes of the lumbar spine and mild scoliosis. No fra cture or malalignment.
--- NOTE | 2024-08-15 11:16 | XR_ITS ---
WS: [id number] Exam: XR thoracic spine 2V [id number] Date/Time of Exam: 08/15/2024 11:21 AM Reason For Exam: discogenic thoraccic pain No fracture noted. There is spondylosis. Paraspinal soft tissues are unremarkable. Slight thoracic sc oliosis with LEFT convexity. XR/XR thoracic spine 2V [id number] IMPRESSION: 1. No fracture or malalignment. Degenerative changes. Minimal scoliosis.
--- NOTE | 2024-08-15 11:19 | XR_ITS ---
WS: [id number] Exam: XR cervical spine 3V* [id number] Date/Time of Exam: 08/15/2024 11:21 AM Reason For Exam: chronic neck pain No fracture noted. Mild facet DJD at all levels. Normal paraspinal soft tissues. The odontoid is inta ct. Mild spondylosis of C4 and C5. XR/XR cervical spine 3V* [id number] IMPRESSION: 1. Mild degenerative changes. No fracture or malalignment.
== END 2024-08-15 10:56 | disposition home or self-care (01) ==
LOC: RAD 11:00
PROVIDERS: PCP Family Medicine; Visit Provider Family Medicine
DX: M51.34 Other intervertebral disc degeneration, thoracic region (principal); M51.360 Other intervertebral disc degeneration, lumbar region with discogenic back pain only; M47.896 Other spondylosis, lumbar region
CPT/HCPCS: 72040; 72070; 72100

== ENCOUNTER 2024-08-16 07:00 | Outpatient (CLI) | payer MEDICARE, OTHER, SELFPAY ==
--- NOTE | 2024-08-16 | ECG_ITS ---
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 Interpretive Statements LEXISCAN SESTAMIBI STRESS TEST Procedure: At the baseline, the blood pressure was 172/93 mmHg with a heart rate of 101 bpm. The electrocardiogram showed sinus tachycardia, normal axis with normal ST and T's. The Lexiscan was infused over a period of 20 seconds. A total of 0.4 mg of Lexiscan was infused. The stress phase was continued for a total of 5 minutes. Heart rate was at the end of stress phase was 111 bpm and a blood pressure of 143/73 mmHg. The EKG at the peak infusion revealed normal sinus rhythm with no significant ST-T wave changes. Sestamibi was injected 20 seconds after the Lexiscan infusion. Blood pressure at the end of recovery phase was 129/62 mmHg with a heart rate of 108 bpm. Conclusion: 1. Normal EKG response to Lexiscan infusion 2. No Lexiscan induced chest pain or cardiac arrhythmia. 3. Normal blood pressure and heart rate response. 4. Sestamibi/sestamibi perfusion scan pending; see separate report. Electronically Signed On 08-25-2024 19:45:38 PIT SLAGMAN by Nain Horn M.D. [email or web address]
[2024-08-16 07:21] VITALS: BMI 28.8
--- NOTE | 2024-08-16 07:35 | NMCV_ITS ---
NM levi perf SPECT r/s* [id number] Stephanie French Age: 73 Gender: F : 1950 Exam Date: 08/16/2024 07:35 Ordering Phys: Crystal Karmii Technologist: [employer] [place] Exam Location: [facility] Indications: cp STRESS TEST Please see separate stress test [facility] for full findings IMAGE PROTOCOL Rest/Stress 1 Lexiscan Day Radiopharmaceutical Dose (mCi) Administration Site Administered by Rest: Tc-99m 10.5 IV Afua Stroud, COMPUTER SCIENCE INTERN Sestamibi Stress:Tc-99m 33 IV Afua Parekhgle, COMPUTER SCIENCE INTERN Sestamibi Rest: 16-Aug-2024 60 Discovery 630 Stress: 16-Aug-2024 30 Discovery 630 0.4mg Lexiscan. Images obtained in supine and prone position. SPECT RESULTS Technical Quality: Good Raw Data Analysis: Normal Image Corrections: No attenuation or motion correction applied Summed Stress Score: 7 Summed Rest Score: 3 Summed Difference Score: 4 PERFUSION FINDINGS There is a medium sized area of partially reversible perfusion defect seen in inferolateral and inferior cain. This is consistent with medium sized area of prior infarct with small to medium sized area of nimisha-infarct ischemia in inferior and inferolateral cain. Attenuation artifact can not be ruled out. FUNCTIONAL RESULTS (calculated via Gated SPECT) Stress Image LV EF (%): 63 Stress EDV (mL):71 TID: 1.22 Stress ESV (mL):26 FUNCTIONAL FINDINGS: There is normal left ventricular systolic function. TID ratio is elevated and is 1.22. IMPRESSIONS 1. Abnormal myocardial perfusion imaging with medium sized area of prior infarct with small to medium sized area of nimisha-infarct ischemia seen in the inferolateral and inferior cain. Attenuation artifact can not be ruled out. Clinical correlation is required. 2. LV systolic function is normal 3. TID ratio is elevated Nain Horn MD (Electronically Signed) Final Date: 17 August 2024 12:08 S
[2024-08-16] MEDS: regadenoson 0.4 Mg/5 ml Syringe IVP (08:45)
[2024-08-16 09:34] VITALS: BP 135/66; PULSE 108
== END 2024-08-16 07:01 | disposition home or self-care (01) ==
PROVIDERS: PCP Family Medicine; Visit Provider Nurse Practitioner Family
DX: I25.10 Atherosclerotic heart disease of native coronary artery without angina pectoris (principal); R94.39 Abnormal result of other cardiovascular function study; R06.02 Shortness of breath
CPT/HCPCS: 36415; 78452; 93017; 96374; A9500; J2785

== ENCOUNTER 2024-08-28 09:09 | Outpatient (CLI) | payer MEDICARE, OTHER, SELFPAY ==
--- NOTE | 2024-08-28 09:30 | USCV_ITS ---
Stephanie French Age: 73 Gender: F : 1950 Exam Date: 08/28/2024 09:49 Ordering Phys: Crystal Karimi Technologist: BAL Exam Location[place] [facility] [place] [facility] [place] Indication: HISTORY: PROCEDURES: FINDINGS: No evidence of DVT in the above-mentioned veins. Venous reflux of 1.12 seconds was noted in the common femoral vein on the left side. No other significant reflux were noted in the deep veins. Venous reflux of 1.45-second was noted at the saphenofemoral junction on the left side CONCLUSIONS 1`. No evidence of deep or superficial vein thrombosis in the above- mentioned identifiable veins 2. Significant venous reflux of 1.12-second was noted at the common femoral vein on the left side. 3. Significantly venous reflux of 1.45 seconds was noted in the saphenofemoral junction on the left side 4. No significant venous reflux on the right side. Dr Sudhakar Craven MD [facility] (Electronically Signed) Final Date: 05 September 2024 22:46 S
== END 2024-08-28 09:10 | disposition home or self-care (01) ==
LOC: RAD 09:09
PROVIDERS: PCP Family Medicine; Visit Provider Nurse Practitioner Family
DX: I83.812 Varicose veins of left lower extremity with pain (principal)
CPT/HCPCS: 93970

== ENCOUNTER → 2025-01-16 10:29 | Outpatient (BNVA) | payer MEDICARE, OTHER, SELFPAY | PROVIDERS: PCP Family Medicine; Visit Provider Internal Medicine | DX: I25.10 Atherosclerotic heart disease of native coronary artery without angina pectoris (principal); I12.9 Hypertensive chronic kidney disease with stage 1 through stage 4 chronic kidney disease, or unspecified chronic kidney disease; N18.9 Chronic kidney disease, unspecified | CPT/HCPCS: 99214 ==